=== PATIENT | male | born 1945 | race Caucasian/White ===

== ENCOUNTER → 2023-11-19 07:28 | Outpatient (REF) | payer MEDICARE, SELFPAY | LOC: RAD 07:28 | PROVIDERS: ATTENDING PHYSICIAN Surgery Vascular Surgery; FAMILY PHYSICIAN Family Medicine | DX: I71.40 Abdominal aortic aneurysm, without rupture, unspecified (principal) | CPT/HCPCS: 74176 ==

== ENCOUNTER → 2023-12-03 08:00 | Outpatient (REF) | payer MEDICARE, SELFPAY | LOC: RAD 08:00 | PROVIDERS: ATTENDING PHYSICIAN Surgery Vascular Surgery; FAMILY PHYSICIAN Family Medicine | DX: I71.40 Abdominal aortic aneurysm, without rupture, unspecified (principal) | CPT/HCPCS: 76770 ==

== ENCOUNTER → 2024-12-11 07:58 | Outpatient (REF) | payer MEDICARE, SELFPAY | LOC: DHVS 07:58 | PROVIDERS: ATTENDING PHYSICIAN Surgery Vascular Surgery; FAMILY PHYSICIAN Family Medicine | DX: I71.40 Abdominal aortic aneurysm, without rupture, unspecified (principal) | CPT/HCPCS: 76770 ==

== ENCOUNTER 2025-04-11 14:04 | Emergency (ER) | payer MEDICARE, SELFPAY ==
[2025-04-11 14:07] VITALS: BP 179/95
--- NOTE | 2025-04-11 15:41 | ED.GENMED ---
History of Present Illness
General
Chief Complaint: Skin Surface Trauma
Source: patient
Time Seen by Provider: 04/11/25 15:20
History of Present Illness
History of Present Illness:
Note:
CHIEF COMPLAINT(S)
Finger injury.
HISTORY OF PRESENT ILLNESS
The patient is an 79-year-old male who presented with a finger injury. The injury occurred when he got his finger caught in a garage door while closing it. He described the mechanism of injury as the finger getting trapped between the doors or
panels. The patient reported significant pain at the site of the injury but no systemic symptoms. On examination, the wound appeared to be superficial.
PHYSICAL EXAM
General: Alert, no acute distress.
Skin: Warm, dry.
Head: Normocephalic, atraumatic.
Neck: Supple, trachea midline.
Eye, Ears, Nose, Mouth, and Throat: Oral mucosa moist.
Cardiovascular: Normal peripheral perfusion, no edema.
Respiratory: Respirations are non-labored.
Gastrointestinal: Abdomen nondistended.
Back: Normal range of motion, normal alignment.
Musculoskeletal: Finger injury noted with visible superficial wounds. Normal range of motion, normal strength otherwise. Laceration noted to be about 1 cm overlying the DIP joint to the left fifth digit. Normal distal cap refill. Normal flexor
tendon function and strength. Normal extensor tendon function and strength
Neurological: Alert and oriented to person, place, time, and situation. No focal neurological deficit observed.
Psychiatric: Cooperative, appropriate mood & affect.
PROBLEM LIST
Acute Problems:
- Finger injury with superficial lacerations.
PLAN
- The wound will be treated with topical adhesive (glue) as it is superficial.
DIFFERENTIAL DIAGNOSIS
The Differential Diagnosis includes, in no particular order and is not limited to:
1. Simple laceration
2. Contusion
3. Fracture
4. Tendon injury
5. Nerve injury
6. Infection
7. Subungual hematoma
8. Nail bed injury
9. Joint dislocation
10. Ligament sprain
Disposition:
SUMMARY OF ENCOUNTER
An 79-year-old male presented to the emergency department with a laceration on his fifth digit, sustained when his finger got caught in a garage door. The wound was observed to have significant bleeding, though mostly controlled upon presentation.
The injury was treated with mesh and Dermabond, and a splint was applied to maintain stability and promote healing, particularly because of its proximity to the distal interphalangeal (DIP) joint. The patient was also noted to be hypertensive, which
is believed to be related to his injury and represents an unexpected finding.
PLAN
The patient is advised to keep the splint in place for one week to allow proper healing of the wound.
PATIENT EDUCATION AND COUNSELING
The patient was advised on the importance of keeping the splint in place for one week to ensure proper healing, especially given the injury's location near the DIP joint.
FOLLOW-UP INSTRUCTIONS
The patient should follow up with his primary care physician or a hand specialist as necessary to evaluate the healing process and remove the splint.
MEDICATION RECONCILIATION
Prescribed mesh and Dermabond for wound management.
MEDICAL DECISION MAKING
1. Number and Complexity of Problems Addressed:
Acute problems include a finger injury with superficial lacerations. Differential diagnoses taken into account were simple laceration, contusion, fracture, tendon injury, nerve injury, infection, subungual hematoma, nail bed injury, joint
dislocation, and ligament sprain. Acute on chronic uncontrolled hypertension
2. Data:
- Category 1: X-rays reviewed by me and no evidence of fracture.
- Category 2: No independent historian was consulted.
- Category 3: No discussion of management with other healthcare providers.
3. Risk:
Escalation of care was considered due to the unexpected hypertensive episode. However, the patient was deemed safe for outpatient management with proper follow-up instructions.
DIAGNOSIS
Laceration of finger with involvement near the distal interphalangeal joint (ICD-10: S61.221A).
Past History
Past History
ED Past Medical History: Arrthythmia (AF), HTN and Hypercholesterolemia
ED Past Surgical History: None and Orthopedic
Social History
Tobacco: Non-smoker
Alcohol: None
Personal:
Living: with family
Employment: Employed
Family History
Family History: Negative Early CAD or CAD
Phy Exam
Physical Exam
Physical Exam:
.
Course
Orders/Labs/Results
Orders:
Orders
04/11/25 14:12
Finger(s)/Thumb 2 View Lt [CR Finger(s)/thumb Min 2 Vw Lt] Urgent
Comment:
Reason For Exam: finger got caught in garage door
Indicate Which Finger:: Little Finger
04/11/25 15:40
Splints/Slings/Crut- Treatment ONCE
Location: Left
Type of Splint: Aluminum Finger Splint
Vital Signs
Initial and Last Documented VS:
Initial Vital Signs
Temp Pulse Resp BP Pulse Ox
98.1 F 92 16 179/95 96
04/11/25 14:07 04/11/25 14:07 04/11/25 14:07 04/11/25 14:07 04/11/25 14:07
Last Documented Vital Signs
Temp Pulse Resp BP Pulse Ox
98.1 F 92 16 179/95 96
04/11/25 14:07 04/11/25 14:07 04/11/25 14:07 04/11/25 14:07 04/11/25 14:07
Procedures
Laceration Closure
Left Finger:
Status of Wound: clean
Size of Wound in cm: 1
Description of Wound Edges: ragged
Preparation: cleaned with saline
Type of Closure: Dermabond-skin glue
*Pulse Oximetry
SaO2: 96
Oxygen Mode of Delivery: Room air
Patient hypoxic: no
*Critical Care Note
Total Time (30-74mins, 75-104mins- exclusive of procedures): Not Applicable
ED Attending Note
-
Portions of this chart may have been created with voice recognition software.� Occasional wrong word or��sound alike� substitutions may have occurred due to the inherent limitations of voice recognition software.
Discharge Plan
Departure
Patient Disposition: Home (Routine Discharge)
Date of Disposition: 04/11/25
Time of Disposition: 15:43
Patient with high blood pressure during this ER visit?: Yes
Discharge Problem:
Finger laceration
Instructions: Laceration Repair With Glue (DC), BLOOD PRESSURE
Prescriptions:
No Action
atorvastatin 20 mg Tablet
20 mg PO DAILY
metoprolol succinate 50 mg Tablet Extended Release 24 Hr
50 mg PO BID
levothyroxine 75 mcg Tablet
75 mcg PO DAILY@07
ascorbic acid (vitamin C) 250 mg Tablet
500 mg PO DAILY
apixaban 5 mg Tablet
5 mg PO BID
tamsulosin [Flomax] 0.4 mg capsule
0.4 mg PO DAILY Qty: 7 0RF
Referrals:
Ramos Dela Cruz MD [Family Provider, Family Practice]
Activity Restrictions/Additional Instructions:
Keep splint on for 1 week. Return to immediately for redness, drainage from the wound, fevers, swelling, pain or any other concerns.
Interventions
Interventions:
*Risk Screen - Suicide Last Done: 04/11/25 14:07
*Neglect/Abuse Screening Last Done: 04/11/25 14:07
Discharge Date and Time
Print Language: BRAZILIAN
== END 2025-04-11 16:39 | disposition home or self-care (01) ==
LOC: EMR 14:04
PROVIDERS: EMERGENCY PHYSICIAN Emergency Medicine; FAMILY PHYSICIAN Family Medicine
DX: S69.92XA Unspecified injury of left wrist, hand and finger(s), initial encounter (principal); W23.2XXA Caught, crushed, jammed or pinched between a moving and stationary object, initial encounter; E78.00 Pure hypercholesterolemia, unspecified; I10 Essential (primary) hypertension
CPT/HCPCS: 99283; 12001; 73140